=== PATIENT | female | born 1955 | race Caucasian/White ===

== ENCOUNTER → 2023-01-22 | Outpatient (CLI) | payer MEDICARE ==
--- NOTE | 2023-01-22 12:53 | Diagnostic Imaging Report ---
EXAMINATION: Right knee radiographs, 4 views, 5 images. COMPARISON: None. HISTORY: 67-year-old female, right knee pain. FINDINGS: There are small patellofemoral compartment osteophytes. There is no knee joint effusion. The patella is normally positioned. There is mild to moderate lateral compartment joint space loss with osteophyte formation. There is no identified acute fracture. IMPRESSION: Mild to moderate lateral and mild patellofemoral compartment osteoarthritis of the right knee without right knee joint effusion. Dictated by: Dictated on workstation # [id number]
== END ==
LOC: ORTHO 09:57
PROVIDERS: ATTEND Orthopaedic Surgery
DX: M17.11 Unilateral primary osteoarthritis, right knee (principal)
CPT/HCPCS: 73564; G0463; 99213

== ENCOUNTER → 2023-02-13 | Outpatient (CLI) | payer MEDICARE | LOC: ORTHO 11:04 | PROVIDERS: ATTEND Orthopaedic Surgery | DX: M17.11 Unilateral primary osteoarthritis, right knee (principal); N18.9 Chronic kidney disease, unspecified; E11.9 Type 2 diabetes mellitus without complications | CPT/HCPCS: 20610 ==